=== PATIENT | female | born 1935 | race Caucasian/White ===

== ENCOUNTER → 2017-07-19 | Outpatient (CLI) | payer MEDICARE ==
[~2017-07-19] MED LIST: ACET325 PO; ALBU3IS INH; AMLO5 PO; AMLODIPINE; ASCO500 PO; ASPI325 PO; ASPI81CH PO; BISA10S PR; Biotin800 MCG PO; CALCIT950 PO; CHOL10002 PO; CYAN1000 PO; DHEA PO; DIETARY SUPPLEMENT; DIPH50 PO; DOCU100 PO; ERGO400 PO; FLUT44OIA INH; FURO40 PO; Flonase 0.05% N16 GM INH; GLUCOSAMINE CO1 EACH PO; HYDACE5 PO; LEVSOD137 PO; LEVSOD50 PO; LISI20 PO; LIVALO2 MG PO; LOSA25 PO; METO50ER PO; MSM1000 MG PO; MULVIT PO; Milk Of Ma800 MG/5 M PO; Nasal Spray30 ML NS; OMEP20ER PO; PANT40 PO; PRAV20 PO; PROBIOTIC1 EAC1 PO; Percocet 5-3251 EACH PO; Synthroid112 MCG PO; VALSARTAN; VERA180ER PO; Voltaren100 GM TP; WARF5 PO; XARELTO20 MG PO; ZINC220 PO; ZYRTEC10 MG PO
[2017-07-19 16:23] LABS: Appearance, Urine Clear (Clear); Bilirubin, Urine Neg (Neg); Blood, Urine Neg (Neg); Color, Urine Yellow (P-Yellow); Glucose Qualitative, Urine Neg (Neg); Ketones, Urine Neg (Neg); Leukocyte Esterase, Urine 2+ (Neg); Nitrite, Urine Neg (Neg); Protein, Urine Neg (Neg); Urobilinogen, Urine NORM (Normal)
[2017-07-19 16:53] LABS: Bacteria Few /hpf; Red Blood Cells, Urine 0-2 /hpf (0-2); Squamous Epithelial Cells Few /hpf (Few)
== END | disposition home or self-care (01) ==
LOC: LAB 16:15
PROVIDERS: Registered Nurse
DX: B37.9 Candidiasis, unspecified (principal); R35.0 Frequency of micturition
CPT/HCPCS: 81001; 87086

== ENCOUNTER → 2020-02-13 | Outpatient (CLI) | payer MEDICARE ==
[2020-02-13 14:23] LABS: Free Thyroxine 1.49 ng/dL (0.70-1.60); Thyroid Stimulating Hormone 1.09 uIU/mL (0.360-4.800)
== END | disposition home or self-care (01) ==
LOC: LAB 13:30 → LAB SHORT 13:30
PROVIDERS: Physician Assistant
DX: R42 Dizziness and giddiness (principal); R53.83 Other fatigue
CPT/HCPCS: 84439; 84443

== ENCOUNTER 2020-03-18 10:32 | Inpatient (IN) | payer MEDICARE, OTHER ==
[~2020-03-18] VITALS: Ht 177.8 cm; Wt 80.8 kg
[~2020-03-18 10:32] MED LIST changes: -AMLO5 PO; -CHOL10002 PO; -Flonase 0.05% N16 GM INH; -PROBIOTIC1 EAC1 PO; -Synthroid112 MCG PO; -XARELTO20 MG PO
[2020-03-18 11:11] LABS: BASOPHILS ABSOLUTE AUTO 0.02 K/mm3 (0.00-0.23); BASOPHILS PERCENT AUTO 0 % (0-2); EOSINOPHILS ABSOLUTE AUTO 0.06 K/mm3 (0.00-0.68); EOSINOPHILS PERCENT AUTO 1 % (0-6); Hematocrit 43.9 % (33.0-51.0); IMMATURE GRAN ABSOLUTE AUTO 0.03 K/mm3 (0.00-0.10); IMMATURE GRAN PERCENT AUTO 0 % (0-1); LYMPHOCYTES ABSOLUTE AUTO 2.54 K/mm3 (0.84-5.20); LYMPHOCYTES PERCENT AUTO 29 % (21-46); MONOCYTES ABSOLUTE AUTO 0.54 K/mm3 (0.16-1.47); MONOCYTES PERCENT AUTO 6 % (4-13); Mean Corpuscular HGB 31.8 pg (26.0-34.0); Mean Corpuscular HGB Conc 34.2 g/dL (31.5-36.5); Mean Corpuscular Volume 93 fL (80-100); NEUTROPHILS ABSOLUTE AUTO 5.54 K/mm3 (1.96-9.15); NEUTROPHILS PERCENT AUTO 64 % (41-73); Platelet Count 294 K/mm3 (150-400); RDW Coefficient Variation 12.8 % (11.7-14.2); RDW Standard Deviation 43.9 fL (35.1-46.3); Red Blood Cell Count 4.72 M/mm3 (3.80-5.20); White Blood Cell Count 8.73 K/mm3 (4.00-11.30)
[2020-03-18 11:20] LABS: Alanine Aminotransfer (ALT/SGP 19 U/L (12-78); Albumin, Blood 3.9 g/dL (3.4-5.0); Alk Phos 73 U/L (50-136); Anion Gap 8 mmol/L (6-16); Aspartate Aminotrans (AST/SGOT 17 U/L (12-37); Bilirubin, Total 0.7 mg/dL (0.1-1.0); Blood Urea Nitrogen 15 mg/dL (8-24); Bun/Creatinine Ratio 21.9 (12.0-20.0); CO2, Blood 23 mmol/L (21-32); Calcium, Blood 8.9 mg/dL (8.5-10.1); Chloride, Blood 110 mmol/L (98-108); Creatinine, Blood 0.68 mg/dL (0.40-1.00); Glomerular Filtration Rate >60 (60-); Glucose, Blood 128 mg/dL (70-99); Potassium, Blood 3.7 mmol/L (3.5-5.5); Sodium, Blood 141 mmol/L (136-145); Total Protein, Blood 7.9 g/dL (6.4-8.2); Troponin I <0.015 ng/mL (0.000-0.040)
[2020-03-18 11:29] LABS: Free Thyroxine 1.35 ng/dL (0.70-1.60); Thyroid Stimulating Hormone 3.31 uIU/mL (0.360-4.800)
[2020-03-18] MEDS ORDERED: PARO10 PO (12:40)
[2020-03-18] MEDS ORDERED: XARELTO20 MG PO (12:41)
[2020-03-18] MEDS ORDERED: LEVSOD100 PO (12:41)
[2020-03-18] MEDS ORDERED: FLUT.05NI (12:41)
[2020-03-18] MEDS ORDERED: AMLO5 PO (12:42)
[2020-03-18] MEDS ORDERED: VITAMIN D325 MC3 PO (13:06)
[2020-03-18] MEDS ORDERED: PROBIOTIC PO (13:07)
[2020-03-18] MEDS ORDERED: ASCO500 PO (13:08)
--- NOTE | 2020-03-18 18:07 | NUR ---
SHIFT SUMMARY PT ADMITTED TO ICU FOR 3RD DEGREE HEART BLOCK FROM ER AT 1545. PT REPORTS SOB X 4 WEEKS AND INCREASED WEAKNESS, SYMPTOMS WORSE THIS AM. REPORTED NAUSEA AND DIZZINESS. PT ARRIVES c NO COMPLAINTS. LUNGS CLEAR. HR 35-40. BP STABLE. ABD ROUND, SOFT, NON TENDER. BT X 4. A&O X3. PT NERVOUS c CARE, NEEDS REASSURANCE. PLAN FOR PACEMAKER PLACEMENT THIS EVENING. WILL CONTINUE TO MONITOR UNTIL REPORT TO ONCOMING NURSE.
--- NOTE | 2020-03-18 21:45 | NUR ---
PAIN/ANXIETY PT COMPLAINING OF NECK AND BACK PAIN. PRN TYLENOL GIVEN AND NO RELIEF. REPOSITION FOR COMFORT WITHOUT RELIEF. EMELY REED NOTIFIED. NEW ORDER RECIEVED FOR PAIN. ALSO NOTIFIED OF ANXIETY. NEW ORDER FOR ATIVAN.
--- NOTE | 2020-03-18 23:42 | NUR ---
ASSUMED CARE AT 1915 PT LAYING IN BED AND A/O X4. MONITOR SHOWS COMPLETE HEART BLOCK. HR 37, BP 193/71, RR 18, RA SAT 96%. PT SKIN WARM AND DRY. NO NAUSEA OR DIZZINESS. NO CHEST PAIN. PLAN IS TO TAKE PT TO OUTSIDE INSTALLATION MACHINIST IN THE AM. PT APPEARS ANXIOUS AND NOT COMFORTABLE. SEE SHIFT ASSESSMENT FOR FULL ASSESSMENT.
--- NOTE | 2020-03-19 00:01 | NUR ---
DECREASED SAT'S/O2 PT RA SAT BELOW 90% TO 87%. 3L NC STARTED TO KEEP SAT'S GREATER THAN 90%. PT IS SLEEPING AND TOLERATING WELL.
--- NOTE | 2020-03-19 06:17 | NUR ---
END OF SHIFT SUMMARY PT SLEEPING IN BED. PRN MEDICATION FOR PAIN AND ANXIETY EFFECTIVE. HR 30'S. RR 14. SBP 106-177. 2L NC SAT 96%. ZOLL AT BEDSIDE. CONTINOUS WITH COMPLETE HEART BLOCK. NO COMPLAINTS OF CHEST PAIN OR DIZZINESS. PT NAUSEOUS ONCE, PRN ZOFRAN HELPFUL. PT SKIN CLEAN AND DRY. WILL REPORT TO AM RN WHEN AVAILABLE.
--- NOTE | 2020-03-19 07:15 | NUR ---
REC'D BEDSIDE REPORT FROM NKECHI RN AND AM NOW ASSUMING CARE OF THIS PT.
--- NOTE | 2020-03-19 08:09 | NUR ---
AM ASSESSMENT/PT TAKEN TO [employer]: PT IS SLEEPING BUT AWAKENS EASILY. EXPLAINED TO PT PENDING PROCEDURE AND THAT [facility] STAFF HERE TO TAKE PT FOR PACEMAKER PLACEMENT. NO C/O PAIN AT THIS TIME BUT REPORTS NEW NECK/BACK PAIN THAT SHE REC'D DILAUDID FOR. PT DID REPORT NAUSEA FROM DILAUDID, AND REC'D ZOFRAN TO RELIEVE THIS. PT DENIES ANY LIGHT-HEADEDNESS AT THIS TIME. LUNGS ARE CLEAR BUT DIMINISHED T/O BILATERALLY. SP02 98% ON 2L 02 VIA N/C. HR REGULAR, WITH COMPLETE HEART BLOCK IN THE 30'S WHILE SLEEPING AND 40'S WHILE AWAKE. PT HAVING PACEMAKER PLACED. ABD SOFT/ROUND/NON-TENDER WITH ACTIVE BT'S X 4 QUADS. NO VOID THIS AM. PT NPO FOR PROCEDURE THIS AM. -FULL CODE STATUS -POSSIBLE STATUS CHANGE POST PROCEDURE. WILL DISCUSS WITH
--- NOTE | 2020-03-19 10:02 | NUR ---
UPDATED DAUGHTER AND DISCUSSED CONCERNS. PT'S DAUGHTER EXPRESSES CONCERN OVER PT'S MOBILTY AT HOME, ESPECIALLY ONCE PACEMAKER IS PLACED AND HAS RESTRICTIONS. PLACED S/S CONSULT TO ADDRESS CONCERNS AND WILL DISCUSS POSSIBLE PT EVALUATION WITH
--- NOTE | 2020-03-19 10:34 | NUR ---
PT RETURNED: PT BACK IN ROOM AT THIS TIME S/P PACEMAKER PLACEMENT. LT CW SOFT/NO BLEEDING/HEMATOMA AT THIS TIME. VSS. PT REC'D VANCOMYCIN IN [facility] PER JAYLIN PANG. PT PLACED ON 2L 02 VIA N/C AT THIS TIME SP02 90% WHILE DROWSY.
--- NOTE | 2020-03-19 17:41 | NUR ---
SHIFT SUMMARY: PT WENT FOR PACEMAKERT PLACEMENT TODAY, R/T COMPLETE HEART BLOCK. PACEMAKER PLACED TO LT CW WITH GAUZE/OCCLUSIVE DRSG IN PLACE THAT IS C/D/I. SITE IS SOFT, NO BLEEDING/HEMATOMA SEEN. EDUCATED/REMINDED PT SEVERAL TIMES T/O SHIFT ABOUT ACTIVITY RESTRICTIONS. PT'S DAUGHTER, WHOM PT LIVES WITH IS VERY CONCERNED ABOUT PT'S HOME MOBILITY, ESPECIALLY IN LIGHT OF NEW PACER PLACEMENT. CLOTH FOLDER MACHINE CONSULT PLACED FOR ASSISTANCE WITH PLACEMENT FOR DISCHARGE AND PT/OT ADDED TO PT'S CASE. PHYSICAL THERAPY WORKED WITH PT WHOM RECOMMENDED REHAB. LUNGS REMAIN DIMINISHED T/O BILATERALLY. HR 100% PACED SINCE PACER PLACED EARLIER THIS SHIFT. PIV'S SL'D. ABD SOFT/ ROUND/NON-TENDER. PT INITIALLY C/O ABD PAIN. NO C/O ABD DISCOMFORT THIS AFTERNOON. PT ON CARDIAC DIET WITH POOR/FAIR APPETITE. NO BM THIS SHIFT. PT CONTINENT AND INCONTINENT OF STOOL.
--- NOTE | 2020-03-19 19:00 | NUR ---
ASSUMED CARE OF PATIENT. REC'D. REPORT FROM OFFGOING RN. PATIENT DENIES CHEST PAIN OR SOB. PACEMAKER DRESSING TO LEFT CHEST C/D/I. CALL DESIR IN REACH.
--- NOTE | 2020-03-19 19:15 | NUR ---
PT MOVED TO ICU 1: CHART/PERSONAL BELONGINGS/MEDS BROUGHT TO NEW . REPORTED OFF TO DORIAN.
--- NOTE | 2020-03-19 19:53 | NUR ---
CALLED DR. GUERRERO REGARDING PATIENT'S SBP 180'S. PATIENT REFUSING TO TAKE HYDRALAZINE; STATES IT MADE HER SICK LAST NIGHT. REC'D. ORDERS FOR LABETALOL 10MG IV NOW AND LISINOPRIL 10MG PO NOW.
--- NOTE | 2020-03-20 04:05 | NUR ---
PATIENT TO BE MOVED TO PCU BED 3. REPORT CALLED TO JAYLIN LOPEZ. PATIENT TRANSPORTED TO PCU BED 3 VIA BED WITH RN TO ACCOMPANY.
--- NOTE | 2020-03-20 04:10 | NUR ---
ASSUMED CARE PT TRANSFERRED TO PCU FROM ICU BY BED. REPORT GIVEN PRIOR TO TRANSFER. VS STABLE UPON TRANSFER.
--- NOTE | 2020-03-20 06:15 | NUR ---
SHIFT SUMMARY PT TRANSFERRED TO PCU AT 0400. PT'S DRESSING IN UPPER LEFT CHEST IS CLEAN DRY AND INTACT. PT REPORTS PAIN IN THE LOWER SACRAL AREA. REPOSITIONING NEEDED AND PAIN MEDICATIONS GIVEN PER EMAR. VS STABLE. PT REPORTS NO CHEST PAIN OR PRESSURE. WILL CONTINUE TO MONITOR UNTIL REPORT GIVEN TO ONCOMING DAYSHIFT RN.
--- NOTE | 2020-03-20 17:29 | NUR ---
SHIFT SUMMARY PT A&Ox4; CALM AND COOPERATIVE WITH CARE. PT RESTING IN BED DURING SHIFT. ASSIST WITH REPOSITIONING. PT REPORTS PAIN TO LOWER BACK AND BILATERAL KNEE; MEDICATED PER CHIQUITA PETERS POSITIVE RESULTS. PT DENIES SOB; PT ON 2L O2 VIA NC THIS AM; TITRATED TO ROOM AIR; SPO2 >94% T/O SHIFT. PT DENIES NAUSEA AND DIZZINESS. PACEMAKER PLACEMENT YESTERDAY TO LCW; DRESSING CHANGES BY DR MANDUJANO THIS AM; EDUCATED PT ON ACTIVITY RESTRITIONS. IV VANCO GIVEN THIS AM. VSS. NO OTHER ACUTE CHANGES NOTED DURING SHIFT. WILL CONTINUE TO MONITOR UNILT REPORT GIVEN TO ONCOMING RN.
--- NOTE | 2020-03-21 06:14 | NUR ---
SHIFT SUMMARY PT PAINFUL DURING BEGINNING OF SHIFT. PT REPORTS PAIN TO LLE AND BACK. PT REPORTED NO PAIN RELIEF WITH REPOSITIONING AND MEDICATION GIVEN PER EMAR. PHYSICIAN NOTIFIED AND PRESCRIBED TRAMADOL. PT REPORTED A DECREASE IN PAIN AFTER TRAMADOL GIVEN. REPOSITIONED PT Q 2 HRS AND NEEDED. PT UNABLE TO SLEEP T/O NIGHT. PT PROVIDED WITH QUIET ROOM AND SLEEP AID GIVEN PER EMAR. PT REPORTED TO FEEL NAUSEATED, ANTIEMETIC GIVEN PER EMAR. VS STABLE. PT REPORTS NO CP OR PRESSURE. WILL CONTINUE TO MONITOR UNTIL REPORT GIVEN TO DAYSHIFT RN.
--- NOTE | 2020-03-21 15:34 | NUR ---
TRANSFER NOTE- RECIEVED TELEPHONE REPORT FROM ENTRY SPECIALISTJAYLIN MCADAMS. PER REPORT PT FORGETFUL AT TIMES A&O X3 HAS NOT ATTEMPTED TO GET OUT OF BED. PT REFUSES TO GET OOB D/T KNEE PAIN. PLAN IS TO DISCHARGE TO [facility] WITH NEXT AVAILABLE BED.
--- NOTE | 2020-03-21 16:00 | NUR ---
TRANSFER NOTE TELEPHONE REPORT GIVEN TO JAYLIN GIRARD ASSUMING CARE OF PT. PT TRANSFERED TO ROOM 357. PT A&Ox3; CALM AND COOPERATIVE WITH CARE. PT RESTING IN BED DUIRNG SHIFT. PT REFUSING TURNING AND MOVEMENT IN BED; STATES THAT IT HURTS. PT REPORTS KNEE AND BACK PAIN; REPOSITIONED FOR COMFORT AND OFFERED HEATING PAD, PT DECLINED. PT DENIES CHEST PAIN, SOB, NAUSEA AND DIZZINESS. PT REFUSING TO GET OOB. PACEMAKER TO LCW; DRESSING C/D/I; NO BRUISING, BLEEDING OR HEMATOMA NOTED TO SITE. VSS. NO OTHER ACUTE CHANGES. PT TRANSFERED TO ROOM 357
--- NOTE | 2020-03-21 18:00 | NUR ---
SHIFT SUMMARY- PT ALERT AND ORIENTED X3. PT DAUGHTER BROUGHT HER A BAG OF TIOLETRIES FACE CREAMS AND LOTIONS. PT HAS HER LEFT ARM IN A SLING TO KEEP HER FROM USEING IT SHE IS FORGETFUL. WHEN DINNER CAME THIS EVENING THE PT BECAME ANXIOUS WHEN STAFF WERE ASSISTING HER TO GET INTO A SAFE POSITION TO EAT. SHE SEEMED A LITTLE PANICKED WHEN STAFF BOOSTED HER IN THE BED, (NEEDS TO BE REMINDED NOT TO GRAB THE RAIL WITH HER LEFT HAND) WHEN STAFF ASSISTED HER TO SIT UP IN THE BED SHE BECAME A LITTLE ANXIOUS STATING SHE CAN STAND TO SIT UP LIKE THAT. STAFF EXPLAINED THE SAFETY ISSUE TO HER ABOUT EATING WHILE LYING BACK. PT AGREED TO SIT UP WHILE SHE ATE HER DINNER. PT SEEMS CALM AND NO LONGER ANXIOUS AT THIS TIME. SHE SEEMS FEARFUL OF NEW ACTIVITES THOUGH. WILL PASS ON TO NIGHT RN IN BEDSIDE REPORT.
[2020-03-22 05:21] LABS: BASOPHILS ABSOLUTE AUTO 0.02 K/mm3 (0.00-0.23); BASOPHILS PERCENT AUTO 0 % (0-2); EOSINOPHILS ABSOLUTE AUTO 0.21 K/mm3 (0.00-0.68); EOSINOPHILS PERCENT AUTO 3 % (0-6); Hematocrit 39.4 % (33.0-51.0); Hemoglobin 13.1 g/dL (11.5-16.0); IMMATURE GRAN ABSOLUTE AUTO 0.02 K/mm3 (0.00-0.10); IMMATURE GRAN PERCENT AUTO 0 % (0-1); LYMPHOCYTES ABSOLUTE AUTO 2.74 K/mm3 (0.84-5.20); LYMPHOCYTES PERCENT AUTO 36 % (21-46); MONOCYTES ABSOLUTE AUTO 0.71 K/mm3 (0.16-1.47); MONOCYTES PERCENT AUTO 9 % (4-13); Mean Corpuscular HGB 31.9 pg (26.0-34.0); Mean Corpuscular HGB Conc 33.2 g/dL (31.5-36.5); Mean Corpuscular Volume 96 fL (80-100); Mean Platelet Volume 10.3 fL (9.1-12.4); NEUTROPHILS ABSOLUTE AUTO 3.93 K/mm3 (1.96-9.15); NEUTROPHILS PERCENT AUTO 51 % (41-73); Platelet Count 223 K/mm3 (150-400); RDW Coefficient Variation 12.5 % (11.7-14.2); RDW Standard Deviation 43.9 fL (35.1-46.3); Red Blood Cell Count 4.11 M/mm3 (3.80-5.20); White Blood Cell Count 7.63 K/mm3 (4.00-11.30)
[2020-03-22 05:45] LABS: Anion Gap 5 mmol/L (6-16); Blood Urea Nitrogen 22 mg/dL (8-24); Bun/Creatinine Ratio 26.8 (12.0-20.0); CO2, Blood 27 mmol/L (21-32); Calcium, Blood 8.5 mg/dL (8.5-10.1); Chloride, Blood 104 mmol/L (98-108); Creatinine, Blood 0.82 mg/dL (0.40-1.00); Glomerular Filtration Rate >60 (60-); Glucose, Blood 95 mg/dL (70-99); Potassium, Blood 4.2 mmol/L (3.5-5.5); Sodium, Blood 136 mmol/L (136-145)
--- NOTE | 2020-03-22 07:08 | NUR ---
SHIFT SUMMARY PATIENT ABLE TO SLEEP WELL MOST OF THE NIGHT. MEDICATED TWICE NEEDED FOR BACK PAIN PER EMAR. DRESSING OVER PACEMAKER CLEAN, DRY, AND INTACT. IV'S PATENT AND FLUSHED. BED IN LOWEST POSITION WITH WHEELS LOCKED AND ALARM ON. CALL LIGHT WITHIN REACH. REPORT GIVEN TO ONCOMING JAYLIN.
[2020-03-22] MEDS ORDERED: ACET325 PO (15:08)
[2020-03-22] MEDS ORDERED: ASPI81CH PO (15:08)
[2020-03-22] MEDS ORDERED: Prinivil10 MG PO (15:09)
[2020-03-22] MEDS ORDERED: FURO20 PO (15:09)
[2020-03-22] MEDS ORDERED: DOCUZEN 8.6-501 EACH PO (15:09)
[2020-03-22] MEDS ORDERED: MIRALAX17 GM PO (15:10)
--- NOTE | 2020-03-22 15:59 | NUR ---
SHE IS RESTING IN BED. SHE STOOD AT THE BEDSIDE X2 TODAY, ONCE WITH OT AND ONCE WITH PT. NO STEPS YET. L ARM SLING ON ALL DAY. WAITING TO HEAR FROM THE TIPPLE MECHANIC IF SHE CAN DISCHARGE TODAY TO REHAB OR NOT.
--- NOTE | 2020-03-22 16:58 | NUR ---
SHE JUST RECEIVED A SUPPOSITORY BECAUSE NO BM DOCUMENTED SINCE ADMISSION. SHE SAYS SHE DIDN'T EAT FOR A DAY BEFORE ADMISSION AND HASN'T EATEN MUCH SINCE. SHE WORKED WITH PT AND OT TODAY. SHE STOOD BUT DID NOT TAKE STEPS. SHE IS VERY FEARFUL OF FALLING, EVEN WHEN WE TURN HER IN BED. HER BOTTOM IS RED. SHE HAS HAD CREAM APPLIED TO HER BOTTOM WITH [employer]. L ARM SLING ON ALL DAY. PACEMAKER DRESSING CD&I L CHEST WALL. RAPID COVID TEST DONE. RESULTS NEGATIVE. WAITING FOR AUTHORIZATION FROM HER INSURANCE COMPANY FOR DC TO REHAB.
--- NOTE | 2020-03-23 05:41 | NUR ---
SHIFT SUMMARY NO ACUTE CHANGES THIS SHIFT, MEDICATED 1X W/TYLENOL FOR PAIN 02/22 IN BACK & LEGS, PT ASLEEP SOON AFTER ADMIN, REPOS Q2 PT WLD ALLOW, EDUCATED PT ON NEED FOR REPOSITIONING, HEEL PROTECTORS IN PLACE, BM THIS SHIFT, SLEPT T/O THE NIGHT & SLEEPING AT THIS TIME, CALL LIGHT IN REACH, WILL CONT TO MONITOR UNTIL REPORT GIVEN TO DAY RN.
--- NOTE | 2020-03-23 16:08 | NUR ---
SHE DISCHARGED TO [facility] AT 1438 BY W/Chi SILVA. WE USED THE LIFT TO GET HER INTO THE WHEELCHAIR. SHE DIDN'T CARE FOR IT BUT HAS NOT YET MADE A TRANSFER PIVOT WITH THERAPY YET. SHE WAS AFEBRILE. SHE HAD TYLENOL FOR HER BACK PAIN C S S REPRESENTATIVE AND ONCE THIS AFTERNOON. SHE EATS AND DRINKS WELL. SHE HAD A BM LAST NIGHT. SHE REMAINS INCONTINENT OF URINE AND WEARS ATTENDS. ALL HER BELONGINGS WENT WITH HER. I CALLED REPORT TO [facility] AND FAXED INFO. REGARDING HER PACEMAKER APPTS AND PACEMAKER CARE.
== END 2020-03-23 14:34 | DRG 242 ==
LOC: ER 10:32 → ICUW 13:16 → ICUE 03-19 19:07 → PCU 03-20 04:21 → MEDS 03-21 15:45 → ENPENDDIS 03-22 12:29 → MEDS 03-23 14:34
PROVIDERS: Physician Assistant; ADMIT Internal Medicine
PROC: 0JH606Z Insertion of Pacemaker, Dual Chamber into Chest Subcutaneous Tissue and Fascia, Open Approach (ICD-10-PCS; principal; 2020-03-19)
PROC: 02HK3JZ Insertion of Pacemaker Lead into Right Ventricle, Percutaneous Approach (ICD-10-PCS; 2020-03-19)
PROC: 02H63JZ Insertion of Pacemaker Lead into Right Atrium, Percutaneous Approach (ICD-10-PCS; 2020-03-19)
DX: I44.2 Atrioventricular block, complete (principal); I50.33 Acute on chronic diastolic (congestive) heart failure; I11.0 Hypertensive heart disease with heart failure; E03.9 Hypothyroidism, unspecified; Z20.828 Contact with and (suspected) exposure to other viral communicable diseases; E78.5 Hyperlipidemia, unspecified; F32.9 Major depressive disorder, single episode, unspecified; G62.9 Polyneuropathy, unspecified; I25.10 Atherosclerotic heart disease of native coronary artery without angina pectoris; J44.9 Chronic obstructive pulmonary disease, unspecified; M19.012 Primary osteoarthritis, left shoulder; Z86.711 Personal history of pulmonary embolism; Z86.73 Personal history of transient ischemic attack (TIA), and cerebral infarction without residual deficits; Z79.01 Long term (current) use of anticoagulants; I48.91 Unspecified atrial fibrillation; I35.0 Nonrheumatic aortic (valve) stenosis; Z86.718 Personal history of other venous thrombosis and embolism; I25.2 Old myocardial infarction
CPT/HCPCS: 33208; 36415; 70450; 71045; 71046; 76937; 80048; 80053; 83880; 84439; 84443; 84484; 85025; 85379; 93005; 93010; 93306; 97110; 97112; 97162; 97166; 97530; 97535; 99152; 99153; 99285-25; A9270; A9270-GY; C1785; C1894; C1898; J0360; J1170; J1644; J1940; J2060; J2250; J2405; J3010; J3370; J7040; U0002

== ENCOUNTER → 2020-09-10 | Outpatient (CLI) | payer MEDICARE ==
[~2020-09-10] MED LIST changes: +AMLO5 PO; +DOCUZEN 8.6-501 EACH PO; +FLUT.05NI; +FURO20 PO; +LEVSOD100 PO; +MIRALAX17 GM PO; +PARO10 PO; +PROBIOTIC PO; +Prinivil10 MG PO; +VITAMIN D325 MC3 PO; +XARELTO20 MG PO
[2020-09-10 18:23] LABS: BASOPHILS ABSOLUTE AUTO 0.05 K/mm3 (0.00-0.23); BASOPHILS PERCENT AUTO 1 % (0-2); EOSINOPHILS ABSOLUTE AUTO 0.33 K/mm3 (0.00-0.68); EOSINOPHILS PERCENT AUTO 4 % (0-6); Hematocrit 48.3 % (33.0-51.0); IMMATURE GRAN ABSOLUTE AUTO 0.02 K/mm3 (0.00-0.10); IMMATURE GRAN PERCENT AUTO 0 % (0-1); LYMPHOCYTES ABSOLUTE AUTO 3.18 K/mm3 (0.84-5.20); LYMPHOCYTES PERCENT AUTO 36 % (21-46); MONOCYTES PERCENT AUTO 7 % (4-13); Mean Corpuscular HGB 30.9 pg (26.0-34.0); Mean Corpuscular HGB Conc 33.1 g/dL (31.5-36.5); Mean Corpuscular Volume 93 fL (80-100); Mean Platelet Volume 9.2 fL (9.1-12.4); NEUTROPHILS ABSOLUTE AUTO 4.77 K/mm3 (1.96-9.15); NEUTROPHILS PERCENT AUTO 53 % (41-73); Platelet Count 307 K/mm3 (150-400); RDW Standard Deviation 44.3 fL (35.1-46.3); Red Blood Cell Count 5.18 M/mm3 (3.80-5.20); White Blood Cell Count 8.95 K/mm3 (4.00-11.30)
[2020-09-10 18:33] LABS: Alanine Aminotransfer (ALT/SGP 27 U/L (12-78); Albumin, Blood 4.1 g/dL (3.4-5.0); Alk Phos 115 U/L (40-126); Anion Gap 10 mmol/L (6-16); Aspartate Aminotrans (AST/SGOT 21 U/L (12-37); Bilirubin, Total 0.4 mg/dL (0.1-1.0); Blood Urea Nitrogen 13 mg/dL (8-24); Bun/Creatinine Ratio 16.5 (12.0-20.0); CO2, Blood 27 mmol/L (21-32); Calcium, Blood 9.3 mg/dL (8.5-10.1); Chloride, Blood 101 mmol/L (98-108); Creatinine, Blood 0.79 mg/dL (0.40-1.00); Globulin, Blood 4.3 g/dL (2.2-4.0); Glomerular Filtration Rate >60 (60-); Glucose, Blood 116 mg/dL (70-99); Sodium, Blood 138 mmol/L (136-145); Total Protein, Blood 8.4 g/dL (6.4-8.2)
== END | disposition home or self-care (01) ==
LOC: LAB SHORT 18:19 → LAB 18:19
PROVIDERS: Physician Assistant
DX: L29.9 Pruritus, unspecified (principal)
CPT/HCPCS: 80053; 85025